=== PATIENT | female | born 1955 | race Caucasian/White ===

== ENCOUNTER 2022-09-15 22:15 | Emergency (ER) | payer SELFPAY ==
[~2022-09-15] VITALS: Ht 162.6 cm; Wt 81.6 kg
[2022-09-15 23:49] LABS: HEMATOCRIT 38.2 % (31.2-41.9); MEAN CORPUSCULAR HEMOGLOBIN 27.8 uug (24.7-32.8); MEAN CORPUSCULAR VOLUME 84.7 fL (75.5-95.3); PLATELET COUNT (AUTO) 357 K/uL (179-408)
[2022-09-16 00:04] LABS: CARBON DIOXIDE 21 mmol/L (21-32); CHLORIDE 103 mmol/L (98-107); CREATININE 0.9 mg/dL (0.6-1.3); GLUCOSE 129 mg/dL (74-106); POTASSIUM 3.9 mmol/L (3.5-5.1); UREA NITROGEN, BLOOD 10 mg/dL (7-18)
[2022-09-16 00:19] LABS: ACETAMINOPHEN < 10.0 ug/mL (10-30); ALANINE AMINOTRANSFERASE 19 U/L (14-59); ALKALINE PHOSPHATASE 134 U/L (50-136); ASPARTATE AMINOTRANSFERASE 15 U/L (15-37); BILIRUBIN,DIRECT 0.1 mg/dL (0.0-0.2); BILIRUBIN,TOTAL 0.3 mg/dL (0.2-1.0); TOTAL PROTEIN, SERUM 7.8 g/dL (6.4-8.2)
--- NOTE | 2022-09-16 00:41 | NUR ---
PT REFUSED TO GIVEN URINE SAMPLE. STATED, "I ONLY GIVE URINE SAMPLES TO MY PRIMARY DOCTOR, I DON'T DO DRUGS, I ONLY DRINK." DR. YOU NOTIFIED.
[2022-09-16 00:44] LABS: ETHANOL 240 MG/DL (0-0)
--- NOTE | 2022-09-16 02:30 | NUR ---
Patient used crutch to walk to restroom.
--- NOTE | 2022-09-16 03:06 | NUR ---
Called [facility] to set up pt transportation to home, they were unbale to give an eta and said they will call when they have an eta.
--- NOTE | 2022-09-16 04:15 | NUR ---
Taxi called, still no taxi avaliable at this time.
--- NOTE | 2022-09-16 04:35 | NUR ---
Call [employer] and set up patient transportation per patient's request.
--- NOTE | 2022-09-16 05:15 | NUR ---
[employer] called to inform us that there is not a taxi avaliable in this area yet.
--- NOTE | 2022-09-16 06:04 | NUR ---
[facility] called and stated, "[email or web address] still working on it."
--- NOTE | 2022-09-16 06:40 | NUR ---
[employer] has arrived.
--- NOTE | 2022-09-16 06:47 | NUR ---
Patient discharged to home in stable condition. A/O x 4. NAD noted. Ambulatory with one crutch. All belongings with patient. Written and verbal after care instructions given. Patient verbalizes understanding of instructions. Stressed follow up or return to ER for worsening s/s.
[2022-09-16 06:51] VITALS: BP 121/68
== END 2022-09-16 06:50 | disposition home or self-care (01) ==
LOC: ER 22:15
DX: F10.129 Alcohol abuse with intoxication, unspecified (principal); Y90.8 Blood alcohol level of 240 mg/100 ml or more; E11.9 Type 2 diabetes mellitus without complications
CPT/HCPCS: 36415; 85025; A4663; G0480